=== PATIENT | male | born 1945 | race Caucasian/White ===

== ENCOUNTER 2021-08-25 10:59 | Emergency (ER) | payer MEDICARE, SELFPAY ==
[2021-08-25 11:00] VITALS: BP 135/77; PULSE 83; RESP 18; TEMP 38.5; O2SAT 99
[2021-08-25 11:34] VITALS: BP 135/77; PULSE 83; RESP 18; TEMP 38.5; O2SAT 99
--- NOTE | 2021-08-25 11:49 | ED.MALEGU ---
HPI - Male Genitourinary General Chief complaint: Urogenital-Male Stated complaint: Fever Time Seen by Provider: 08/25/21 11:29 Source: patient and RN notes reviewed Mode of arrival: ambulatory Limitations: no limitations History of Present Illness HPI Narrative: Patient presents today complaining of urinary frequency and urgency with voiding small amounts since yesterday with fever up to 102 and dysuria since this morning as well as chills. Denies nausea or vomiting, abdominal pain. He does report some low back pain that he rates 2?3/10. He has not tried any [id number] treatment prior to arrival. He is vaccinated against COVID-19. Denies history of kidney stones or pyelonephritis. MD Complaint: dysuria Related Data Home Medications Medication Instructions Recorded Confirmed amlodipine 5 mg PO DAILY 08/25/21 08/25/21 diclofenac sodium See Rx Instructions .ROUTE .COMPLEX 08/25/21 08/25/21 fluticasone propionate 2 spray INTRANASAL DAILY 08/25/21 08/25/21 gabapentin 300 mg PO TID 08/25/21 08/25/21 hydrochlorothiazide 25 mg PO DAILY 08/25/21 08/25/21 lisinopril 40 mg PO DAILY 08/25/21 08/25/21 Allergies Allergy/AdvReac Type Severity Reaction Status Date / Time No Known Allergies Allergy Verified 08/25/21 11:30 Review of Systems Review of Systems: CONSTITUTIONAL: Denies body aches, or sweats.+ Fever, chills EYES: Denies visual changes, redness, or discharge. ENT: Denies rhinorrhea, congestion, sore throat, or otalgia. CARDIOVASCULAR: Denies chest pain, palpitations, or edema. RESPIRATORY: Denies cough or dyspnea. GASTROINTESTINAL: Denies abdominal pain, nausea, vomiting, or diarrhea. GENITOURINARY: + Dysuria, frequency, voiding small amounts, urgency SKIN: Denies rash, itching, or wounds. MUSCULOSKELETAL: Denies joint pain, or myalgia. + Back pain NEUROLOGIC: Denies headache, numbness, tingling, or weakness. PSYCH: Denies depression or anxiety. [facility] Past Medical History Medical History (Updated 08/25/21 @ 11:54 by Peggy Goodson, [facility], ) Borderline diabetes Hypertension Surgical History Surgical History (Updated 08/25/21 @ 11:53 by Peggy Goodson, [employer], ) History of right knee joint replacement Comments At time of signature, I have reviewed and agree with nursing past medical, surgical, social and family history unless otherwise noted. Please see nursing chart for further information. There is no relevant family history pertinent to the presenting complaint Exam Narrative: GENERAL: Well-appearing, well-nourished, and in no acute distress. HEAD: Normocephalic, atraumatic. EYES: EOMI. No redness or drainage. Conjunctivae normal. ENT: Mucous membranes pink and moist. NECK: Normal AROM. Supple. No lymphadenopathy. CHEST: No respiratory distress. Clear to auscultation. HEART: Regular rate and rhythm. No murmur appreciated. Normal peripheral pulses. ABDOMEN: Soft, nontender, nondistended, normal active bowel sounds. Very mild right CVAT. MUSCULOSKELETAL: No bony tenderness. EXTREMITIES: Normal range of motion. No edema. SKIN: Warm, dry, no rash. Capillary refill normal. Normal skin turgor. NEURO: No focal deficits. Alert and oriented x3. Gait steady. PSYCH: Normal affect. No signs of depression or anxiety. Course Vital Signs Vital signs: Vital Signs Temperature 101.3 F H 08/25/21 11:00 Pulse Rate 83 08/25/21 11:00 Respiratory Rate 18 08/25/21 11:00 Blood Pressure 135/77 08/25/21 11:00 Pulse Oximetry 99 08/25/21 11:00 Temperature 101.3 F H 08/25/21 11:34 Pulse Rate 83 08/25/21 11:34 Respiratory Rate 18 08/25/21 11:34 Blood Pressure 135/77 08/25/21 11:34 Pulse Oximetry 99 08/25/21 11:34 Reviewed. Pt has been instructed to follow up with his PCP regarding his elevated blood pressure today. MDM - Male Genitourinary Differential Diagnosis Differential diagnosis: Likely urinary tract infection, urethritis, prostatitis and other (Pyelonephriti
== END 2021-08-25 12:00 | disposition home or self-care (01) ==
PROVIDERS: Emergency Provider Nurse Practitioner; PCP Family Medicine
DX: N30.01 Acute cystitis with hematuria (principal); I10 Essential (primary) hypertension; Z20.822 Contact with and (suspected) exposure to COVID-19
CPT/HCPCS: 81003; 87077; 87086; 87186; 87426; 99203; C9803; G0463